=== PATIENT | female | born 1945 | race Caucasian/White ===

== ENCOUNTER 2019-06-07 16:09 | Inpatient (IN) | payer MEDICARE, MEDICAID ==
[2019-06-07 16:50] LABS: ADD MAN DIFF? NO
[2019-06-07 16:52] LABS: WHITE BLOOD COUNT 8.1 10^3/ul (4.8-10.8)
[2019-06-07 16:52] LABS: BASOPHILS % 0.4 % (0.0-2.0); EOSINOPHILS # 0.1 10^3/ul (0.0-0.5); EOSINOPHILS % 0.9 % (0.0-7.0); HEMATOCRIT 33.4 % (37.0-47.0); HEMOGLOBIN 10.7 g/dl (12.0-16.0); LYMPHOCYTES # 1.9 10^3/ul (0.8-2.9); LYMPHOCYTES % 23.6 % (15.0-51.0); MEAN CORPUSCULAR HEMOGLOBIN 31.9 pg (29.0-33.0); MEAN CORPUSCULAR VOLUME 99.7 fl (82.0-101.0); MEAN PLATELET VOLUME 8.7 fl (7.4-10.4); MONOCYTE # 0.8 10^3/ul (0.3-0.9); MONOCYTES % 10.4 % (0.0-11.0); NEUTROPHIL # 5.2 10^3/ul (1.6-7.5); NEUTROPHILS % 64.3 % (39.0-77.0); PLATELET COUNT 278 10^3/UL (140-415); RED BLOOD COUNT 3.35 10^6/ul (4.20-5.40); RED CELL DISTRIBUTION WIDTH 14.8 % (11.5-14.5)
[2019-06-07] MEDS: SOD CHLORIDE 0.9% 1,000 ML IV (16:57)
[2019-06-07 17:10] LABS: ALANINE AMINOTRANSFERASE 22 IU/L (13-69); ALBUMIN 3.5 g/dl (3.3-4.9); ALBUMIN/GLOBULIN RATIO 1.25; ALKALINE PHOSPHATASE 106 IU/L (42-121); ANION GAP 5 (5-13); ASPARTATE AMINO TRANSFERASE 23 IU/L (15-46); BILIRUBIN,INDIRECT 0.4 mg/dl (0-1.1); BILIRUBIN,TOTAL 0.4 mg/dl (0.2-1.3); BLOOD UREA NITROGEN 10 mg/dl (7-20); CALCIUM 8.8 mg/dl (8.4-10.2); CARBON DIOXIDE 28 mmol/L (21-31); CHLORIDE 102 mmol/L (97-110); CREATININE 0.63 mg/dl (0.44-1.00); GLUCOSE 83 mg/dl (70-220); POTASSIUM 4.1 mmol/L (3.5-5.1); SODIUM 135 mmol/L (135-144); TOTAL PROTEIN 6.3 g/dl (6.1-8.1)
[2019-06-07 17:14] LABS: ADD UMIC YES; UR ASCORBIC ACID NEGATIVE (NEGATIVE); UR BILIRUBIN (Dip) NEGATIVE (NEGATIVE); UR BLOOD (Dip) 1+ mg/dL (NEGATIVE); UR CLARITY CLEAR (CLEAR); UR COLOR STRAW (YELLOW); UR GLUCOSE (Dip) NEGATIVE (NEGATIVE); UR KETONES (Dip) NEGATIVE (NEGATIVE); UR LEUKOCYTE ESTERASE (Dip) NEGATIVE Leu/ul (NEGATIVE); UR NITRITE (Dip) NEGATIVE (NEGATIVE); UR RBC 1 /HPF (0-5); UR SPECIFIC GRAVITY (Dip) 1.002 (1.003-1.030); UR TOTAL PROTEIN (Dip) NEGATIVE (NEGATIVE); UR UROBILINOGEN (Dip) NEGATIVE (NEGATIVE); UR WBC 5 /HPF (0-5)
[2019-06-07 17:22] LABS: TROPONIN-I < 0.012 ng/ml (0.000-0.120)
[2019-06-07 17:28] LABS: INR 0.92; PROTIME 12.5 Sec (11.9-14.9)
[2019-06-07] MEDS: morphine 2 MG INJ IV (17:48)
[2019-06-07] MEDS ORDERED: ACETAMINOPHEN 325 MG TAB PO (18:30)
[2019-06-07] MEDS ORDERED: ONDANSETRON 4 MG INJ IV ×2 (18:30→19:00)
[2019-06-07] MEDS ORDERED: NACL 0.9% 3 ML SYG IV (19:00)
[2019-06-07] MEDS: OXYCODONE/ACETAMINOPHEN (10/325) TAB PO (19:37)
[2019-06-08] MEDS: OXYCODONE/ACETAMINOPHEN (10/325) TAB PO ×4 (01:44→20:36)
[2019-06-08 06:04] LABS: ADD MAN DIFF? NO
[2019-06-08 06:12] LABS: BASOPHILS % 0.4 % (0.0-2.0); EOSINOPHILS # 0.1 10^3/ul (0.0-0.5); EOSINOPHILS % 1.4 % (0.0-7.0); HEMATOCRIT 33.1 % (37.0-47.0); HEMOGLOBIN 10.6 g/dl (12.0-16.0); LYMPHOCYTES # 1.8 10^3/ul (0.8-2.9); LYMPHOCYTES % 30.9 % (15.0-51.0); MEAN CORPUSCULAR HEMOGLOBIN 31.7 pg (29.0-33.0); MEAN CORPUSCULAR VOLUME 99.1 fl (82.0-101.0); MEAN PLATELET VOLUME 8.9 fl (7.4-10.4); MONOCYTE # 0.6 10^3/ul (0.3-0.9); MONOCYTES % 10.4 % (0.0-11.0); NEUTROPHIL # 3.2 10^3/ul (1.6-7.5); NEUTROPHILS % 56.7 % (39.0-77.0); PLATELET COUNT 261 10^3/UL (140-415); RED BLOOD COUNT 3.34 10^6/ul (4.20-5.40); RED CELL DISTRIBUTION WIDTH 14.8 % (11.5-14.5)
[2019-06-08 06:12] LABS: WHITE BLOOD COUNT 5.7 10^3/ul (4.8-10.8)
[2019-06-08 06:34] LABS: ALANINE AMINOTRANSFERASE 22 IU/L (13-69); ALBUMIN 2.9 g/dl (3.3-4.9); ALBUMIN/GLOBULIN RATIO 1.16; ALKALINE PHOSPHATASE 79 IU/L (42-121); ANION GAP 5 (5-13); ASPARTATE AMINO TRANSFERASE 24 IU/L (15-46); BILIRUBIN,INDIRECT 0.4 mg/dl (0-1.1); BILIRUBIN,TOTAL 0.4 mg/dl (0.2-1.3); BLOOD UREA NITROGEN 10 mg/dl (7-20); CALCIUM 8.4 mg/dl (8.4-10.2); CARBON DIOXIDE 27 mmol/L (21-31); CHLORIDE 105 mmol/L (97-110); CHOL/HDL RATIO 2.8 RATIO; CHOLESTEROL 145 mg/dl (100-200); CREATININE 0.62 mg/dl (0.44-1.00); GLUCOSE 131 mg/dl (70-220); HDL CHOLESTEROL 51 mg/dl (33-92); LDL CHOLESTEROL,CALCULATED 78 mg/dl; MAGNESIUM 1.9 mg/dl (1.7-2.5); PHOSPHORUS 4.1 mg/dl (2.5-4.9); POTASSIUM 3.9 mmol/L (3.5-5.1); SODIUM 137 mmol/L (135-144); TOTAL PROTEIN 5.4 g/dl (6.1-8.1); TRIGLYCERIDES 78 mg/dl (0-149)
[2019-06-08] MEDS: PANTOPRAZOLE (EC) 40 MG TAB PO ×2 (06:47→08:41)
[2019-06-08 06:51] LABS: HEMOGLOBIN A1C 5.4 % (0-5.9)
[2019-06-08] MEDS ORDERED: KETOROLAC 15 MG INJ IV (11:30)
[2019-06-08 11:57] LABS: FREE T4 (FREE THYROXINE) 0.29 ng/dl (0.78-2.44)
[2019-06-09] MEDS: OXYCODONE/ACETAMINOPHEN (10/325) TAB PO ×2 (03:36→10:00)
[2019-06-09] MEDS: PANTOPRAZOLE (EC) 40 MG TAB PO (05:48)
[2019-06-09] MEDS: LEVOTHYROXINE 100 MCG TAB PO (07:06)
== END 2019-06-09 16:15 | disposition home or self-care (01) | DRG 392 ==
LOC: TEL 18:08 → E/R 16:09
DX: K52.9 Noninfective gastroenteritis and colitis, unspecified (principal); K21.9 Gastro-esophageal reflux disease without esophagitis; R41.3 Other amnesia; R51 Headache; R10.84 Generalized abdominal pain; M54.9 Dorsalgia, unspecified; I25.2 Old myocardial infarction; T40.2X1A Poisoning by other opioids, accidental (unintentional), initial encounter; R41.82 Altered mental status, unspecified
CPT/HCPCS: 36415; 70450; 71045; 74176; 80053; 80061; 81001; 82962; 83036; 83735; 84100; 84439; 84443; 84484; 85025; 85610; 85730; 93005; 93970; 96374; 99285-25